=== PATIENT | male | born 1970 | race Caucasian/White ===

== ENCOUNTER 2021-02-11 09:46 | Outpatient (REF) | payer OTHER, SELFPAY ==
[2021-02-11 10:36] LABS: MANUAL DIFF FLAG NO
[2021-02-11 11:05] LABS: Basophils Percent Auto 0.1 % (0-2); Hematocrit 51.7 % (42-52); Hemoglobin 17.5 g/dl (14.0-18.0); Imm Gran Abs Auto 0.09 X10*3/uL (0.00-0.03); Imm Gran Pct Auto 0.7 % (0.0-0.4); Lymphocytes Absolute Auto 1.1 X10*3/uL (1.2-4.9); Lymphocytes Percent Auto 8.4 % (20-40); Mean Corpuscular HGB Conc 33.8 g/dl (31.0-36.0); Mean Corpuscular Hemoglobin 28.5 pg (27.0-33.0); Mean Corpuscular Volume 84.1 fL (80-98); Mean Platelet Volume 9.4 fL (9.4-12.4); Monocytes Absolute Auto 0.4 X10*3/uL (0.1-1.2); Monocytes Percent Auto 3.4 % (2-11); Neutrophils Absolute Auto 11.2 X10*3/uL (2.0-8.3); Neutrophils Percent Auto 87.4 % (45-73); Platelet Count 250 X10*3/uL (160-400); Red Blood Count 6.15 X10*6/uL (4.60-5.80); Red Cell Distribution Width 12.3 % (11.0-16.0); White Blood Count 12.8 X10*3/uL (4.8-10.8)
[2021-02-11 11:08] LABS: Alanine Aminotransferase 26 U/L (0-40); Albumin Level 4.7 g/dL (3.5-5.0); Alkaline Phosphatase 59 U/L (39-117); Anion Gap 15 (12-20); Aspartate Amino Transferase 13 U/L (5-37); Bilirubin Total 0.6 mg/dL (0.0-1.0); Blood Urea Nitrogen 22 mg/dL (9-16); Calcium 10.2 mg/dL (8.4-10.2); Carbon Dioxide 26 mmol/L (22-29); Chloride 106 mmol/L (96-108); Cholesterol 231 mg/dL; Estimated Glomerular Filt Rate > 60; Glucose Random 120 mg/dL (60-115); HDL Cholesterol 56 mg/dL; LDL Cholesterol Calculated 165 mg/dl; Potassium 4.8 mmol/L (3.3-5.1); Sodium 142 mmol/L (135-145); Total Protein 7.5 g/dL (6.5-8.0); Triglycerides 53 mg/dL
[2021-02-11 11:17] LABS: Estimated Average Glucose 105 mg/dL; Hemoglobin A1C 152.3478 umol/L; Hemoglobin A1c % 5.3 %
[2021-02-11 11:23] LABS: Free T4 (Free Thyroxine) 0.86 ng/dL (0.71-1.85); Thyroid Stimulating Hormone 1.34 uIU/mL (0.32-4.0)
[2021-02-11 11:35] LABS: Folate 5.3 ng/mL (> or = 4.0); Vitamin B12 313 pg/mL (200-900)
== END 2021-02-11 09:47 | disposition home or self-care (01) ==
LOC: HO.LAB 09:46
PROVIDERS: PCP Internal Medicine; Visit Provider Internal Medicine
DX: R73.02 Impaired glucose tolerance (oral) (principal); I10 Essential (primary) hypertension; E78.00 Pure hypercholesterolemia, unspecified
CPT/HCPCS: 36415; 80053; 80061; 82607; 82746; 83036; 84439; 84443; 85025

== ENCOUNTER 2023-10-06 09:01 | Outpatient (AMB) | payer BC, SELFPAY ==
[2023-10-06 09:02] VITALS: BP 142/98; PULSE 72; O2SAT 95; BMI 39.7
--- NOTE | 2023-10-06 09:02 | MHC.PC.OV ---
Vital Signs 10/06/23 09:02 10/06/23 09:32 Height 5 ft 11 in Weight 285 lb 0.5 oz BMI 39.7 BP 142/98 H 144/94 H Blood Pressure Location Lt brachial Lt brachial Position Sitting Sitting Pulse 72 Pulse Source Pulse Oximeter Pulse Oximetry (%) 95 Oxygen Delivery Method Room Air Intake Visit Reasons: PE Video Photographer Required: No Allergies Sulfa (Sulfonamide Antibiotics) Allergy (Unknown, Verified 10/06/23 09:02) rash Medication List - Last Reconciled 10/06/23 by Martita Chavez MD hydrochlorothiazide 12.5 mg PO DAILY 90 days multivitamin 1 tab PO DAILY Tobacco use date assessed: 10/06/23 Dental Screening Dental Screen Date: 10/06/23 Did you have a dental visit in the last 12 months?: Yes Did you have a dental problem in the last 6 months where you did not have access to dental care?: No Was dental information given to patient?: Patient has dentist HPI PE HPI Details 53-year-old obese male with hypertension GERD hypercholesterolemia impaired glucose tolerance coming in for physical exam last seen in September colon test is due this year. Patient has chronic low back pain and in April was sent to pain management diagnosis of discogenic degenerative changes L5-S1 L4-L5 and S1 being transitional central to left subarticular extruded disc herniation with mild caudal migration at L4-L5 with encroachment on the left lateral recess and probable compromise of the transversing left L5 nerve root. advised lumbar epidural steroid injections L4-L5 but did not have done. 12/10 , R knee problem also PFSH Medical History (Updated 10/06/23 @ 09:29 by Martita Chavez MD) History of rib fracture Tear of MCL (medial collateral ligament) of knee Hypercholesterolemia Hypertension Fatty liver Traumatic partial tear of right biceps tendon Renal calculi GERD (gastroesophageal reflux disease) Obesity (BMI 30-39.9) Erectile dysfunction Surgical History (Updated 03/27/21 @ 10:09 by Martita Chavez MD) History of surgery on arm History of appendectomy Family History (Updated 09/21/21 @ 11:36 by Martita Chavez MD) Father Skin cancer Myocardial infarction Mother No problems noted. Sister Skin cancer Breast cancer Paternal Uncle Myocardial infarction Social History (Updated 10/06/23 @ 09:35 by Martita Chavez MD) Housing: House Alcohol intake: current Alcohol intake frequency: holidays/special occasions only Comment: once a month 1-2 drinks Patient Tobacco Use Status: Never used Tobacco Tobacco use type: Cigarette e-Cigarette/Vaping Use: Never Used Second Hand Smoke Exposure: No service: No Current occupational status: employed Cognitive needs: No Hearing needs: No Vision needs: No Questionnaire PHQ-9 Over the last 2 weeks, how often have you been bothered by any of the following problems? 1. Little interest or pleasure in doing things: not at all 2. Feeling down, depressed, or hopeless: not at all 3. Trouble falling or staying asleep, or sleeping too much: not at all 4. Feeling tired or having little energy: not at all 5. Poor appetite or overeating: not at all 6. Feeling bad about yourself - or that you are a failure or have let yourself or your family down: not at all 7. Trouble concentrating on things, such as reading the newspaper or watching television: not at all 8. Moving or speaking so slowly that other people could have noticed. Or the opposite - being so fidgety or restless that you have been moving around a lot more than usual: not at all 9. Thoughts that you would be better off or of hurting yourself in some way: not at all Total score: 0 Depression Screening Interpretation: Negative Depression Screening Done: Yes Source: Developed by Drs. Dalton Ervin, Abigail Jacobs, Peter Mesa and colleagues, with an educational jerri from [employer]. Thrive Questionnaire Date Thrive assessed: 10/06/23 I am a: Patient What is your living situation today?: I have a steady place to live Within the past 12 months, did the food you bought not last and you didn't have the money to get more?: Never true Within the past 12 months, did you worry whether your food would run out before you got money to buy more?: Never true Do you have trouble paying for medicines?: No Do you have trouble getting transportation to medical appointments?: No Do you have trouble paying your heating and electricity bill?: No Do you have trouble taking care of your child, family member or friend?: No Do you have trouble with day-to-day activities such as bathing, preparing meals, shopping, managing finances, etc.?: No Are you currently unemployed and looking for a job?: No Are you interested in more education?: No AUDIT C Alcohol Use Questionnaire (AUDIT-C) 1. How often do you have a drink containing alcohol?: 2-3 times a week 2. How many drinks containing alcohol do you have on a typical day when you are drinking?: 1 or 2 3. How often do you have six or more drinks on one occasion?: Never Total Score: 3 NANDA-7 AMB Questionnaire NANDA-7 Date NANDA - 7 assessed: 10/06/23 Feeling nervous, anxious, or on edge: 0 = Not at all Not being able to stop or control worryin = Not at all Worrying too much about different things: 0 = Not at all Trouble relaxin = Not at all Being so restless that it is hard to sit still: 0 = Not at all Becoming easily annoyed or irritable: 0 = Not at all Feeling afraid as if something awful might happen: 0 = Not at all Total NANDA-7 score (0-4 normal; 5-9 mild; 10-14 moderate; 15-21 severe): 0 Source: Developed by Drs. Dalton Ervin, Abigail Jacobs, Peter Mesa and colleagues, with an educational jerri from [employer]. Review of Systems Const Denies poor appetite and Denies weakness Eyes Denies no additional complaints ENT Reports Normal hearing present, Denies dizziness, Denies nasal congestion, Denies tinnitus and Denies sore throat Card Denies chest pain, Denies syncope, Denies rapid heart rate and Denies dyspnea Resp Denies cough and Denies dyspnea GI Denies change in stool character, Reports constipation, Denies diarrhea, Denies nausea and Denies vomiting Denies dysuria and Denies urinary frequency Neuro Reports Normal hearing present, Denies confusion, Denies dizziness, Denies syncope and Denies weakness Psych Denies confusion Physical exam (Primary Care) Vital Signs: Last Vital Signs Pulse 72 10/06/23 09:02 BP 142/98 H 10/06/23 09:02 Pulse Ox 95 10/06/23 09:02 Oxygen Delivery Method Room Air 10/06/23 09:02 BMI result Body Mass Index 39.7 Tobacco/Smoking Status: Tobacco use Status Tobacco use date assessed 10/06/23 10/06/23 09:09 Patient Tobacco Use Status Never used Tobacco 10/06/23 09:09 Tobacco use type Cigarette 10/06/23 09:09 e-Cigarette/Vaping Use Never Used 10/06/23 09:09 PHQ-9: PHQ-9 Score PHQ-9: Total score 0 10/06/23 09:09 Depression Screening Interpretation: Negative Thrive Assessment: Date of Thrive Assessment Date Thrive assessed 10/06/23 10/06/23 09:09 Const General: No confusion Orientation/consciousness: No confusion HENMT Head: Yes normocephalic Ears: external ears normal and TM's normal bilaterally Face and sinus: Yes normal facial exam Mouth: moist mucous membranes Throat: Yes tonsils normal Eyes Conjunctivae: conjunctivae normal Pupils: Equal, round and reactive pupils present and Pupil accommodation reflex normal Direct Ophthalmoscopy: normal light reflex Neck Neck: No lymphadenopathy Thyroid: Thyroid normal Chest Chest palpation & inspection: normal inspection of the chest Resp Effort & Inspection: normal respiratory effort and no audible wheezes Auscultation: clear to auscultation bilaterally, no crackles, no wheezes and lung sounds not diminished Cardio Rate: regular rate Rhythm: regular rhythm Peripheral pulses: radial pulses present and dorsalis pedis present GI Palpation (GI): no masses Auscultation: normal bowel sounds and normoactive bowel sounds Rectal Exam - Male: Yes deferred Skin General skin exam: no rashes or lesions noted Rashes: no rashes Neuro General: No confusion Cranial nerves: Yes Equal, round and reactive pupils present and Yes Normal hearing present Cognition (Neuro): normal cognition Gait exam (Neuro): Normal gait present Motor exam (neuro): 5/5 motor strength present throughout Deep tendon reflexes (DTR's): Right brachioradialis reflex intensity grade: 2+, Left brachioradialis reflex intensity grade: 2+, Right patellar reflex intensity grade: 2+ and Left patellar reflex intensity grade: 2+ Extrem General: No edema Assessment and Plan Assessment & Plan (1) Annual physical exam: Code(s): Z00.00 - Encounter for general adult medical examination without abnormal findings (2) Obesity (BMI 30-39.9): Code(s): E66.9 - Obesity, unspecified Plan: Diet and exercise (3) Hypertension: Code(s): I10 - Essential (primary) hypertension Qualifiers: Hypertension type: essential hypertension Qualified Code(s): I10 - Essential (primary) hypertension Plan: Continue with blood pressure medication. Decrease salt intake and exercise presently on hydrochlorothiazide 12.5 mg once a day (4) Hypercholesterolemia: Code(s): E78.00 - Pure hypercholesterolemia, unspecified Plan: Avoid fried foods, chicken skin, eggs, butter margarine, pastries and meat. Be it pork or beef they have a lot of cholesterol LDL goal of less than 130 and triglyceride of less than 150 (5) GERD (gastroesophageal reflux disease): Code(s): K21.9 - Gastro-esophageal reflux disease without esophagitis Qualifiers: Esophagitis presence: without esophagitis Qualified Code(s): K21.9 - Gastro-esophageal reflux disease without esophagitis Plan: Avoid the foods that causes that usually spicy foods, tomato products, juices, coffee, soda and foods that your sensitive to. After eating do not lie down, allow 3-4 hours before in lie down. And keep the head of bed above 30 degrees to avoid the acid from going up. (6) Impaired glucose tolerance: Code(s): R73.02 - Impaired glucose tolerance (oral) Plan: Decrease the amount of carbohydrate intake, pasta, bread, rice and potatoes are all sugar and that is aside from all the sweet stuff, remember that fruits are good but they are Sweet also. (7) Chronic low back pain: Comment: 2014 MRI L5-S1 disc herniation impinging on nerve Code(s): M54.5 - Low back pain; G89.29 - Other chronic pain Qualifiers: Back pain laterality: left Sciatica presence: with sciatica Sciatica laterality: sciatica of left side Qualified Code(s): M54.42 - Lumbago with sciatica, left side; G89.29 - Other chronic pain Plan: April 2023 had seen pain management planned epidural injection (8) Colon cancer screening: Code(s): Z12.11 - Encounter for screening for malignant neoplasm of colon Plan: Reminded about colonoscopy (9) Knee pain, right: Code(s): M25.561 - Pain in right knee Orders: Orders Hemoglobin A1c Today R73.02 - Impaired glucose tolerance (oral) Complete Blood Count Auto Diff Today E78.00 - Pure hypercholesterolemia, unspecified Vitamin B12 and Folate Today E78.00 - Pure hypercholesterolemia, unspecified Prostate Specific Antigen Scr Today E78.00 - Pure hypercholesterolemia, unspecified Comprehensive Met. Panel Today R73.02 - Impaired glucose tolerance (oral) Lipid Panel Today E78.00 - Pure hypercholesterolemia, unspecified Thyroid Stimulating Hormone Today E78.00 - Pure hypercholesterolemia, unspecified Free T4 (Free Thyroxine) Today E78.00 - Pure hypercholesterolemia, unspecified XR knee RT 1V Today M25.561 - Pain in right knee Referrals Orthopedics Referral M25.561 - Pain in right knee Gastroenterology Referral Z12.11 - Encounter for screening for malignant neoplasm of colon Medications: Refilled hydrochlorothiazide 12.5 mg PO DAILY 90 days 90 tabs 1RF I10 - Essential (primary) hypertension Coding Level of Care Code Est Pt Prev Care 40-64y(84390) Diagnoses Annual physical exam Z00.00 Obesity (BMI 30-39.9) E66.9 Essential hypertension I10 Hypertension type: essential hypertension Hypercholesterolemia E78.00 Gastroesophageal reflux disease without esophagitis K21.9 Esophagitis presence: without esophagitis Impaired glucose tolerance R73.02 Chronic left-sided low back pain with left-sided sciatica M54.42; G89.29 Back pain laterality: left Sciatica presence: with sciatica Sciatica laterality: sciatica of left side Colon cancer screening Z12.11 Knee pain, right M25.561
[2023-10-06 09:32] VITALS: BP 144/94
== END 2023-10-06 10:01 | disposition home or self-care (01) ==
PROVIDERS: Visit Provider Internal Medicine
DX: Z00.00 Encounter for general adult medical examination without abnormal findings (principal); E66.9 Obesity, unspecified; Z68.39 Body mass index [BMI] 39.0-39.9, adult; I10 Essential (primary) hypertension; E78.00 Pure hypercholesterolemia, unspecified; K21.9 Gastro-esophageal reflux disease without esophagitis; R73.02 Impaired glucose tolerance (oral); M54.42 Lumbago with sciatica, left side; G89.29 Other chronic pain; Z12.11 Encounter for screening for malignant neoplasm of colon; M25.561 Pain in right knee
CPT/HCPCS: 99396

== ENCOUNTER 2023-10-06 10:07 | Outpatient (REF) | payer BC, SELFPAY ==
--- NOTE | ~2023-10-06 | XR_ITS ---
EXAMINATION: XR KNEE, RIGHT CLINICAL INFORMATION: Pain in right knee chronic anterior knee pain, no injury. COMPARISON: 10/27/2017 TECHNIQUE: 4 views of the right knee. FINDINGS: Joint effusion. Moderate lateral joint space narrowing. Tiny tricompartmental osteophytes. XR/XR knee RT 4V IMPRESSION: Joint effusion. Moderate lateral joint space narrowing.
== END 2023-10-06 10:08 | disposition home or self-care (01) ==
LOC: HO.XRAY 10:07
PROVIDERS: PCP Internal Medicine; Visit Provider Internal Medicine
DX: Z12.5 Encounter for screening for malignant neoplasm of prostate (principal); M25.561 Pain in right knee; R73.02 Impaired glucose tolerance (oral); E78.00 Pure hypercholesterolemia, unspecified
CPT/HCPCS: 36415; 73564; 80053; 80061; 82607; 82746; 83036; 84153; 84439; 84443; 85025

== ENCOUNTER 2024-01-05 08:48 | Outpatient (AMB) | payer BC, SELFPAY ==
[2024-01-05 08:52] VITALS: BP 158/96; PULSE 89; O2SAT 94; BMI 40.0
--- NOTE | 2024-01-05 08:52 | A.OFFPC_ITS ---
Vital Signs 01/05/24 08:52 Height 5 ft 11 in Weight 287 lb BMI 40.0 BP 158/96 H Blood Pressure Location Lt brachial Position Sitting Pulse 89 Pulse Source Pulse Oximeter Pulse Oximetry (%) 94 Oxygen Delivery Method Room Air Intake Visit Reasons: Hypertension Property Loss Insurance Claim Adjuster Required: No Allergies Sulfa (Sulfonamide Antibiotics) Allergy (Unknown, Verified 01/05/24 08:55) rash Tobacco use date assessed: 01/05/24 Dental Screening Dental Screen Date: 10/06/23 HPI Hypertension HPI Details [age] Year old obese male with hypertension hypercholesterolemia GERD impaired glucose tolerance coming in for follow-up. Last seen in October 2023 referred to Gastroenterology for colon test patient has complained of right knee pain and had an x-ray done showing joint effusion with lateral joint space narrowing moderate. Showing osteoarthritis. 5 days cough productive, no fevers, ARTEAGA, los- negative covid, , no diarrhea, no sore throat, child sick also. PFS Medical History (Updated 01/05/24 @ 09:09 by Martita Chavez MD) History of rib fracture Tear of MCL (medial collateral ligament) of knee Hypercholesterolemia Hypertension Fatty liver Traumatic partial tear of right biceps tendon Renal calculi GERD (gastroesophageal reflux disease) Obesity (BMI 30-39.9) Erectile dysfunction Surgical History (Updated 03/27/21 @ 10:09 by Martita Chavez MD) History of surgery on arm History of appendectomy Family History (Updated 09/21/21 @ 11:36 by Martita Chavez MD) Father Skin cancer Myocardial infarction Mother No problems noted. Sister Skin cancer Breast cancer Paternal Uncle Myocardial infarction Social History (Updated 10/06/23 @ 09:35 by Martita Chavez MD) Housing: House Alcohol intake: current Alcohol intake frequency: holidays/special occasions only Comment: once a month 1-2 drinks Patient Tobacco Use Status: Never used Tobacco Tobacco use type: Cigarette e-Cigarette/Vaping Use: Never Used Second Hand Smoke Exposure: No service: No Current occupational status: employed Cognitive needs: No Hearing needs: No Vision needs: No Questionnaire Thrive Questionnaire Date Thrive assessed: 10/06/23 AUDIT C Alcohol Use Questionnaire (AUDIT-C) 1. How often do you have a drink containing alcohol?: 2-3 times a week 2. How many drinks containing alcohol do you have on a typical day when you are drinking?: 1 or 2 3. How often do you have six or more drinks on one occasion?: Never Total Score: 3 NANDA-7 AMB Questionnaire NANDA-7 Date NANDA - 7 assessed: 10/06/23 Source: Developed by Drs. Dalton Ervin, Abigail Jacobs, Peter Mesa and colleagues, with an educational jerri from [employer]. Physical exam (Primary Care) Vital Signs: Last Vital Signs Pulse 89 01/05/24 08:52 BP 158/96 H 01/05/24 08:52 Pulse Ox 94 01/05/24 08:52 Oxygen Delivery Method Room Air 01/05/24 08:52 BMI result Body Mass Index 40.0 Tobacco/Smoking Status: Tobacco use Status Tobacco use date assessed 01/05/24 01/05/24 08:57 Patient Tobacco Use Status Never used Tobacco 01/05/24 08:57 Tobacco use type Cigarette 01/05/24 08:57 e-Cigarette/Vaping Use Never Used 01/05/24 08:57 Thrive Assessment: Date of Thrive Assessment Date Thrive assessed 10/06/23 01/05/24 08:57 Const General: alert; No acute distress Eyes Conjunctivae: conjunctivae normal Resp Other: rhonchi bilateral , no wheezing, Cardio Rate: regular rate Rhythm: regular rhythm GI Inspection: Yes normal to inspection Extrem General: Yes normal to inspection and No edema Assessment and Plan Assessment & Plan (1) Colon cancer screening: Code(s): Z12.11 - Encounter for screening for malignant neoplasm of colon Plan: Patient has been referred in October. (2) Hypertension: Code(s): I10 - Essential (primary) hypertension Qualifiers: Hypertension type: essential hypertension Qualified Code(s): I10 - Essential (primary) hypertension Plan: Continue with blood pressure medication. Decrease salt intake and exercise presently on hydrochlorothiazide only. Patient is presently sick and so will monitor for now. (3) Hypercholesterolemia: Code(s): E78.00 - Pure hypercholesterolemia, unspecified Plan: Avoid fried foods, chicken skin, eggs, butter margarine, pastries and meat. Be it pork or beef they have a lot of cholesterol last October for blood work is good (4) Obesity (BMI 30-39.9): Code(s): E66.9 - Obesity, unspecified Plan: Diet and exercise (5) GERD (gastroesophageal reflux disease): Code(s): K21.9 - Gastro-esophageal reflux disease without esophagitis Qualifiers: Esophagitis presence: without esophagitis Qualified Code(s): K21.9 - Gastro-esophageal reflux disease without esophagitis Plan: Avoid the foods that causes that usually spicy foods, tomato products, juices, coffee, soda and foods that your sensitive to. After eating do not lie down, allow 3-4 hours before in lie down. And keep the head of bed above 30 degrees to avoid the acid from going up. (6) Impaired glucose tolerance: Code(s): R73.02 - Impaired glucose tolerance (oral) Plan: Decrease the amount of carbohydrate intake, pasta, bread, rice and potatoes are all sugar and that is aside from all the sweet stuff, remember that fruits are good but they are Sweet also. (7) Chronic low back pain: Comment: 2014 MRI L5-S1 disc herniation impinging on nerve Code(s): M54.5 - Low back pain; G89.29 - Other chronic pain Qualifiers: Back pain laterality: left Sciatica presence: with sciatica Sciatica laterality: sciatica of left side Qualified Code(s): M54.42 - Lumbago with sciatica, left side; G89.29 - Other chronic pain Plan: Patient was seeing pain management and was supposed to have some injections done. (8) Acute bronchitis: Code(s): J20.9 - Acute bronchitis, unspecified Plan: antibiotic sent , take mucinex Medications: New azithromycin (Zithromax) For 250 mg dose pack: take 500 mg today (day 1), then 250 mg for 4 days (days 2-5) PO 6 tabs 0RF J20.9 - Acute bronchitis, unspecified Coding Level of Care Code Est Pt Level 4 (39328) Diagnoses Colon cancer screening Z12.11 Essential hypertension I10 Hypertension type: essential hypertension Hypercholesterolemia E78.00 Obesity (BMI 30-39.9) E66.9 Gastroesophageal reflux disease without esophagitis K21.9 Esophagitis presence: without esophagitis Impaired glucose tolerance R73.02 Chronic left-sided low back pain with left-sided sciatica M54.42; G89.29 Back pain laterality: left Sciatica presence: with sciatica Sciatica laterality: sciatica of left side Acute bronchitis J20.9
== END 2024-01-05 09:17 | disposition home or self-care (01) ==
PROVIDERS: PCP Internal Medicine; Visit Provider Internal Medicine
DX: I10 Essential (primary) hypertension (principal); E78.00 Pure hypercholesterolemia, unspecified; K21.9 Gastro-esophageal reflux disease without esophagitis; R73.02 Impaired glucose tolerance (oral); M54.42 Lumbago with sciatica, left side; G89.29 Other chronic pain; J20.9 Acute bronchitis, unspecified
CPT/HCPCS: 99214

== ENCOUNTER → 2024-10-12 10:05 | Outpatient (BNVA) | payer OTHER, SELFPAY | PROVIDERS: PCP Internal Medicine; Visit Provider Internal Medicine ==